=== PATIENT | male | born 1980 | race Caucasian/White ===

== ENCOUNTER 2018-07-09 09:40 | Emergency (ER) | payer OTHER ==
[~2018-07-09] VITALS: Ht 177.8 cm; Wt 122.5 kg
[2018-07-09] MEDS ORDERED: ZANTAC 7575 MG PO (09:52)
== END 2018-07-09 10:01 | disposition home or self-care (01) ==
LOC: ED 09:40
DX: M79.671 Pain in right foot (principal)